=== PATIENT | female | born 1990 | race Caucasian/White ===

== ENCOUNTER 2017-03-24 10:23 | Emergency (ER) | payer BC ==
[~2017-03-24] VITALS: Wt 79.0 kg
[2017-03-24] MEDS ORDERED: FLUT9.9S NASAL (11:02)
[2017-03-24] MEDS ORDERED: CETI10CA PO (11:02)
[2017-03-24] MEDS ORDERED: GUAI120011 PO (11:04)
--- NOTE | 2017-03-24 11:10 | ERD ---
ER Documentation Chief Complaint Date/Time DATE: 03/24/17 TIME: 11:07 Chief Complaint COLD SYMPTOMS X 2 DAYS HPI Is a 26-year-old female who presents to the emergency department today complaining of cough, nasal congestion and runny nose for the past 3 days. States that she think she might have allergies. States that her daughter was here a couple of days ago with same symptoms. Denies any fevers or chills. She has not taken any vpyw-qrh-[id number] medications. ROS All systems reviewed and are negative except as per history of present illness. Medications Home Meds Active Scripts Guaifenesin (Mucinex) 1,200 Mg Tab.er.12h, 1200 MG PO BID for 7 Days, TAB Prov:SISSY GILL PA-C 03/24/17 Cetirizine Hcl* (Zyrtec*) 10 Mg Capsule, 10 MG PO DAILY, #14 TAB.CHEW Prov:SISSY GILL PA-C 03/24/17 Fluticasone Propionate (Flonase Allergy Relief) 9.9 Ml [place].susp, 2 SPRAY NASAL DAILY, #1 BOTTLE TO EACH NOSTRIL Prov:SISSY GILL PA-C 03/24/17 Allergies Allergies: Coded Allergies: No Known Allergy (Unverified , 08/17/12) PMhx/Soc History of Surgery: Yes (d/c,ectopic preg) Anesthesia Reaction: No Hx Neurological Disorder: No Hx Respiratory Disorders: No Hx Cardiac Disorders: No Hx Psychiatric Problems: No Hx Miscellaneous Medical Probl: No Hx Alcohol Use: No Hx Substance Use: No Hx Tobacco Use: No Physical Exam Vitals Vital Signs Date Time Temp Pulse Resp B/P Pulse Ox O2 Delivery O2 Flow Rate FiO2 03/24/17 10:26 98.9 78 18 132/71 99 Physical Exam Const: No acute distress Head: Atraumatic Eyes: Normal Conjunctiva ENT: Ears TMs normal. Nose no drainage. Throat no erythema no exudate Neck: Full range of motion..~ No meningismus. Resp: Clear to auscultation bilaterally Cardio: Regular rate and rhythm, no murmurs Skin: No petechiae or rashes Neur: Awake and alert Psych: Normal Mood and Affect Procedures/MDM This 26-year-old female presents to emergency department today for cough, nasal congestion and runny nose. Patient's physical exam is benign. She is afebrile and otherwise well-appearing here in the emergency department. Her oxygen saturation is 99%. I do not feel the patient requires further workup or imaging at this time. Patient symptoms at this time is consistent with URI likely viral especially given the child had similar symptoms 3 days ago. I do not feel the patient requires antibiotics at this time. I have low suspicion for strep pharyngitis, peritonsillar abscess, retropharyngeal abscess, otitis media, PNA, sinusitis, abscess, meningitis, sepsis, or other acute infectious bacterial process. Patient was given a prescription for Mucinex, Flonase and Zyrtec. At this time the patient is stable for discharge and outpatient management. They should follow up with their PCP in the next 1-2. They may return to the emergency department sooner if symptoms persist or worsen. Patient understood and agreed with the plan. Departure Diagnosis: Primary Impression: Upper respiratory infection URI type: unspecified URI Qualified Code: J06.9 - Upper respiratory tract infection, unspecified type Condition: Fair Patient Instructions: Preventing Common Respiratory Infections Referrals: Dr. Draper Additional Instructions: Call your primary care doctor TOMORROW for an appointment during the next 1-2 days.See the doctor sooner or return here if your condition worsens before your appointment time. Take all medications as prescribed Drink plenty of clear fluids to help with the cough SISSY GILL PA-C Mar 24, 2017 11:10
== END 2017-03-24 11:27 | disposition home or self-care (01) ==
LOC: FTE 10:23
DX: J06.9 Acute upper respiratory infection, unspecified (principal)
CPT/HCPCS: 99283